=== PATIENT | female | born 1980 | race Caucasian/White ===

== ENCOUNTER 2017-07-29 12:25 | Emergency (ER) | payer SELFPAY ==
[~2017-07-29] VITALS: Ht 162.6 cm; Wt 65.8 kg
[2017-07-29 12:48] VITALS: BP 121/92
[2017-07-29] MEDS ORDERED: SODIUM CHLORIDE 0.9% 1,000 ML IVB ONE (12:49)
[2017-07-29] MEDS ORDERED: LORazepam 2MG/ML-1ML VIAL IV ONE (13:00)
== END 2017-07-29 14:46 | disposition home or self-care (01) ==
LOC: EDBD 12:25 → ER 12:25
DX: F10.120 Alcohol abuse with intoxication, uncomplicated (principal); I10 Essential (primary) hypertension; F12.10 Cannabis abuse, uncomplicated; F17.210 Nicotine dependence, cigarettes, uncomplicated
CPT/HCPCS: 70450; 94761